=== PATIENT | female | born 1985 | race Caucasian/White ===

== ENCOUNTER → 2016-11-24 | Outpatient (CLI) | payer OTHER ==
--- NOTE | 2016-11-25 08:14 | USB ---
Reason for exam: clinical finding. Indicated problem(s): palpable abnormality in the right breast. Physical Findings: Nurse Summary: 2.5cm movable lesion at 11 o'clock (nurse dw). US Breast RT Right breast ultrasound including all four quadrants, the retroareolar region and axilla demonstrates a 1.7 x 1.6 x 1.8cm solid, hypoechoic lesion at palpable at 11 o'clock, probable fibroadenoma. 6 month follow up recommended. These results were verbally communicated with the patient and result sheet given to the patient on 11/24/16. ASSESSMENT: Probably benign, BI-RAD 3 RECOMMENDATION: Ultrasound of the right breast in 6 months. Manage patient on a clinical basis.
== END | disposition home or self-care (01) ==
LOC: RADUSWWP 14:53
PROVIDERS: ATTEND Obstetrics & Gynecology
DX: N63 Unspecified lump in breast (principal)

== ENCOUNTER 2018-08-02 08:17 | Emergency (ER) | payer OTHER, BC ==
[2018-08-02] MEDS ORDERED: SODIUM CHLORIDE 0.9% 1,000 ML IV STA (09:03)
--- NOTE | 2018-08-02 09:04 | ED ---
General Adult HPI - General Chief complaint: Vaginal Bleeding Stated complaint: 10wks preg, bleeding Time Seen by Provider: 08/02/18 08:51 Source: patient, RN notes reviewed Mode of arrival: ambulatory Limitations: no limitations - History of Present Illness Initial comments: Patient 33-year-old female presented to the emergency room today with a chief complaint of vaginal bleeding that started this morning which woke up. Patient does admit that she's approximate 10 weeks . She states that she went to the bathroom and she wiped she saw small amount blood. She states she's not using a pad at this time. Denies any increased abdominal pain or cramping. Patient does not that she's had nausea throughout the . She has been using Zofran at home. Patient denies any other complaints. 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 Patient denies any recent fever, chills, shortness of breath, chest pain, back pain, vomiting, numbness or tingling, dysuria or hematuria, constipation or diarrhea, headaches or visual changes, or any other complaints. - Related Data Home Medications Medication Instructions Recorded Confirmed [id number] Acid 1 each PO DAILY 03/20/14 08/02/18 [-U Capsule] Ondansetron [Zofran ODT] 4 mg PO Q6H PRN 08/02/18 08/02/18 Allergies Allergy/AdvReac Type Severity Reaction Status Date / Time avocado Allergy Unknown Verified 08/02/18 08:53 banana Allergy Unknown Verified 08/02/18 08:53 kiwi Allergy Unknown Verified 08/02/18 08:53 latex Allergy Rash/Hives Verified 08/02/18 08:53 CHESTNUTS Allergy Unknown Uncoded 08/02/18 08:53 Review of Systems ROS Statement: Those systems with pertinent positive or pertinent negative responses have been documented in the HPI. ROS Other: All systems not noted in ROS Statement are negative. Past Medical History Past Medical History: No Reported History History of Any Multi-Drug Resistant Organisms: None Reported Past Surgical History: Cholecystectomy Additional Past Surgical History / Comment(s): D & C 2011 with hemorrhage complications Past Anesthesia/Blood Transfusion Reactions: No Reported Reaction Past Psychological History: No Psychological Hx Reported Smoking Status: Former smoker Past Alcohol Use History: None Reported Past Drug Use History: None Reported General Exam - General Exam Comments Initial Comments: General: The patient is awake and alert, in no distress, and does not appear acutely ill. Eye: Extra-ocular movements are intact. No nystagmus. There is normal conjunctiva bilaterally. No signs of icterus. Ears, nose, mouth and throat: There are moist mucous membranes and no oral lesions. Neck: The neck is supple, there is no tenderness or JVD. Cardiovascular: There is a regular rate and rhythm. No murmur, rub or gallop is appreciated. Respiratory: Lungs are clear to auscultation, respirations are non-labored, breath sounds are equal. No wheezes, stridor, rales, or rhonchi. Gastrointestinal: Soft, non-distended, non-tender abdomen without masses or organomegaly noted. There is no rebound or guarding present. No CVA tenderness. Musculoskeletal: Normal ROM, no tenderness. Sensation intact. Neurological: A&O x 3. CN II-XII intact, There are no obvious motor or sensory deficits. Coordination appears grossly intact. Speech is normal. Skin: Skin is warm and dry and no rashes or lesions are noted. Psychiatric: Cooperative, appropriate mood & affect, normal judgment. Limitations: no limitations Course Vital Signs 08/02/18 08/02/18 08:19 11:38 Temperature 98.2 F 98.8 F Pulse Rate 83 99 Respiratory 20 18 Rate Blood Pressure 117/74 122/70 O2 Sat by Pulse 99 98 Oximetry Medical Decision Making - Medical Decision Making Reexamined at this times her no signs of distress. She is resting comfortable. She denies any increased bleeding or increased abdominal pain at this time. Patient's labs been reviewed. Rh is positive. Patient's ultrasound does show a single IUP measuring 7 weeks 6 days. No heart tones at this time. Findings are consistent with demise. Patient's been updated. Advised close follow-up with the [facility] over the next 2 days. Advised to return if symptoms increase or worsen or for any other concerns. She'll be given a prescription for repeat beta hCG in 2 days. - Lab Data Result diagrams: 08/02/18 08:44 08/02/18 08:44 Lab Results 08/02/18 08/02/18 08/02/18 Range/Units 08:40 08:44 08:44 WBC 6.0 (3.8-10.6) k/uL RBC 4.04 (3.80-5.40) m/uL Hgb 12.1 (11.4-16.0) gm/dL Hct 35.1 (34.0-46.0) % MCV 86.8 (80.0-100.0) fL MCH 29.8 (25.0-35.0) pg MCHC 34.4 (31.0-37.0) g/dL RDW 12.0 (11.5-15.5) % Plt Count 267 (150-450) k/uL Neutrophils % 63 % Lymphocytes % 29 % Monocytes % 5 % Eosinophils % 2 % Basophils % 0 % Neutrophils # 3.8 (1.3-7.7) k/uL Lymphocytes # 1.7 (1.0-4.8) k/uL Monocytes # 0.3 (0-1.0) k/uL Eosinophils # 0.1 (0-0.7) k/uL Basophils # 0.0 (0-0.2) k/uL Sodium 137 (137-145) mmol/L Potassium 4.1 (3.5-5.1) mmol/L Chloride 106 (98-107) mmol/L Carbon Dioxide 23 (22-30) mmol/L Anion Gap 8 mmol/L BUN 9 (7-17) mg/dL Creatinine 0.56 (0.52-1.04) mg/dL Est GFR (CKD-EPI)AfAm >90 (>60 ml/min/1.73 sqM) Est GFR (CKD-EPI)NonAf >90 (>60 ml/min/1.73 sqM) Glucose 96 (74-99) mg/dL Calcium 9.1 (8.4-10.2) mg/dL Total Bilirubin 0.3 (0.2-1.3) mg/dL AST 14 (14-36) U/L ALT 15 (9-52) U/L Alkaline Phosphatase 35 L (38-126) U/L Total Protein 6.6 (6.3-8.2) g/dL Albumin 3.7 (3.5-5.0) g/dL HCG, Quant 546577.0 mIU/mL Urine Color Urine Appearance (Clear) Urine pH (5.0-8.0) Ur Specific [place] (1.001-1.035) Urine Protein (Negative) Urine Glucose (UA) (Negative) Urine Ketones (Negative) Urine Blood (Negative) Urine Nitrite (Negative) Urine Bilirubin (Negative) Urine Urobilinogen (<2.0) mg/dL Ur Leukocyte Esterase (Negative) Urine RBC (0-5) /hpf Urine WBC (0-5) /hpf Ur Squamous Epith Cells (0-4) /hpf Urine Bacteria (None) /hpf Urine Mucus (None) /hpf Blood Type A Positive Blood Type Recheck No 08/02/18 Range/Units 08:44 WBC (3.8-10.6) k/uL RBC (3.80-5.40) m/uL Hgb (11.4-16.0) gm/dL Hct (34.0-46.0) % MCV (80.0-100.0) fL MCH (25.0-35.0) pg MCHC (31.0-37.0) g/dL RDW (11.5-15.5) % Plt Count (150-450) k/uL Neutrophils % % Lymphocytes % % Monocytes % % Eosinophils % % Basophils % % Neutrophils # (1.3-7.7) k/uL Lymphocytes # (1.0-4.8) k/uL Monocytes # (0-1.0) k/uL Eosinophils # (0-0.7) k/uL Basophils # (0-0.2) k/uL Sodium (137-145) mmol/L Potassium (3.5-5.1) mmol/L Chloride (98-107) mmol/L Carbon Dioxide (22-30) mmol/L Anion Gap mmol/L BUN (7-17) mg/dL Creatinine (0.52-1.04) mg/dL Est GFR (CKD-EPI)AfAm (>60 ml/min/1.73 sqM) Est GFR (CKD-EPI)NonAf (>60 ml/min/1.73 sqM) Glucose (74-99) mg/dL Calcium (8.4-10.2) mg/dL Total Bilirubin (0.2-1.3) mg/dL AST (14-36) U/L ALT (9-52) U/L Alkaline Phosphatase (38-126) U/L Total Protein (6.3-8.2) g/dL Albumin (3.5-5.0) g/dL HCG, Quant mIU/mL Urine Color Yellow Urine Appearance Cloudy H (Clear) Urine pH 6.0 (5.0-8.0) Ur Specific [place] 1.028 (1.001-1.035) Urine Protein 1+ H (Negative) Urine Glucose (UA) Negative (Negative) Urine Ketones Negative (Negative) Urine Blood Negative (Negative) Urine Nitrite Negative (Negative) Urine Bilirubin Negative (Negative) Urine Urobilinogen <2.0 (<2.0) mg/dL Ur Leukocyte Esterase Negative (Negative) Urine RBC 8 H (0-5) /hpf Urine WBC 1 (0-5) /hpf Ur Squamous Epith Cells 14 H (0-4) /hpf Urine Bacteria Rare H (None) /hpf Urine Mucus Many H (None) /hpf Blood Type Blood Type Recheck Disposition Clinical Impression: Incomplete miscarriage Disposition: HOME SELF-CARE Condition: Good Instructions: Miscarriage (ED) Additional Instructions: Please follow-up with [facility] in the next 2 days. Please return to emergency room if the symptoms increase or worsen or for any other concerns. Is patient prescribed a controlled substance at d/c from ED?: No Referrals: Brittany Cota MD [Primary Care Provider] - 1-2 days Time of Disposition: 11:43
[2018-08-02 09:13] LABS: Basophils % (A) 0 %; Eosinophils # (A) 0.1 k/uL (0-0.7); Eosinophils % (A) 2 %; HCT 35.1 % (34.0-46.0); HGB 12.1 gm/dL (11.4-16.0); Lymphocytes # (A) 1.7 k/uL (1.0-4.8); Lymphocytes % (A) 29 %; MCH 29.8 pg (25.0-35.0); MCHC 34.4 g/dL (31.0-37.0); MCV 86.8 fL (80.0-100.0); Mean Platelet Volume 7.2; Monocytes # (A) 0.3 k/uL (0-1.0); Monocytes % (A) 5 %; Neutrophils # (A) 3.8 k/uL (1.3-7.7); Neutrophils % (A) 63 %; Platelet Count 267 k/uL (150-450); RBC 4.04 m/uL (3.80-5.40)
[2018-08-02 09:20] LABS: Appearance,Urine Cloudy (Clear); Bacteria,Urine Rare /hpf; Bilirubin,Urine Negative (Negative); Blood,Urine Negative (Negative); Color,Urine Yellow; Glucose,Urine (UA) Negative (Negative); Ketones,Urine Negative (Negative); Leukocyte Esterase,Urine Negative (Negative); Mucus,Urine Many /hpf; Nitrite,Urine Negative (Negative); Protein,Urine 1+ (Negative); RBC,Urine 8 /hpf (0-5); Specific Gravity,Urine 1.028 (1.001-1.035); Squamous Epithelial Cell,Urine 14 /hpf (0-4); Urobilinogen,Urine <2.0 mg/dL (<2.0)
[2018-08-02 09:21] LABS: ALT 15 U/L (9-52); AST 14 U/L (14-36); Albumin 3.7 g/dL (3.5-5.0); Alkaline Phosphatase 35 U/L (38-126); Anion Gap 8 mmol/L; Blood Urea Nitrogen 9 mg/dL (7-17); Calcium 9.1 mg/dL (8.4-10.2); Carbon Dioxide 23 mmol/L (22-30); Chloride 106 mmol/L (98-107); Glucose 96 mg/dL (74-99); Potassium 4.1 mmol/L (3.5-5.1); Sodium 137 mmol/L (137-145); Total Bilirubin 0.3 mg/dL (0.2-1.3); Total Protein 6.6 g/dL (6.3-8.2)
--- NOTE | 2018-08-02 11:31 | US ---
EXAMINATION TYPE: Ultrasound OB <= 14 week fetus DATE OF EXAM: 08/02/2018 COMPARISON: NONE CLINICAL HISTORY: 33-year-old female Pain. Bleeding x 1 day, 5, para 2, miscarriage 2 EXAM PERFORMED: Transabdominal (TA) FINDINGS: EXAM MEASUREMENTS: GESTATIONAL AGE / DATING Physician Established: (10 weeks/0 days) EDC: 02/28/2019 Dates by LMP: (10 weeks/0 days) EDC: 02/28/2019 Dates by First Scan: This is 1st scan Dates by Current Scan for: (7 weeks/6 days) EDC: 03/15/2019 MATERNAL ANATOMY Uterus: 10.3 x 8.0 x 9.0cm, anteverted Right Ovary: 3.3 x 2.0 x 2.4cm Left Ovary: 2.8 x 1.4 x 2.0cm Post CDS / Adnexa: wnl Presence of free fluid: no Presence of corpus luteal cyst: right ovary: 2.6cm hypoechoic area with peripheral vascularity, proba ble corpus luteum Presence of subchorionic bleed: no GESTATION / SURVEY CRL: 1.5cm (7 weeks/6 days) Yolk Sac (normal less than 6mm): 4.5mm IUP: Demise Date of LMP: 05/24/2018 Beta HcG (if available): Not available at time of exam. demise: no heart tones seen at this time IMPRESSION: Intrauterine measuring 7 weeks 6 days by crown-rump length, discordant and smaller as arya red to gestational age by LMP. In addition, there is no cardiac activity detected by M-mode or color doppler. Findings suggest demise. This can be correlated with down trending beta hCGs.
[2018-08-02 11:38] VITALS: BP 122/70; PULSE 99; RESP 18; TEMP 98.8
== END 2018-08-02 12:05 | disposition home or self-care (01) ==
LOC: EC 08:17
DX: O03.4 Incomplete spontaneous abortion without complication (principal); Z3A.01 Less than 8 weeks gestation of pregnancy; Z87.891 Personal history of nicotine dependence; Z91.018 Allergy to other foods; Z91.040 Latex allergy status
CPT/HCPCS: 36415; 76801; 80053; 81001; 84702; 85025; 86900; 86901; 99284

== ENCOUNTER 2018-08-05 10:47 | Day surgery (SDC) | payer BC, OTHER ==
[2018-08-04 10:46] VITALS: BMI 30.4
[~2018-08-05 10:47] MED LIST: DEXAMETHASONE SOD PHOSPHATE 10 MG/ML 1 ML VIAL IV ONE; LACTATED RINGERS 1,000 ML IV SCH; LIDOCAINE 1% 20 ML VIAL (10MG/ML) FOR IV START INTRADERMA PRN; MIDAZOLAM 2 MG/2 ML VIAL IV PRN; ONDANSETRON 4 MG/2 ML VIAL IVP ONE; Pre Op ABX Message 1 EACH MISC MISCELLANE ONE; fentaNYL (PF) 50 MCG/ML 2 ML AMP IV PRN
[2018-08-05 11:22] VITALS: RESP 16
--- NOTE | 2018-08-05 12:03 | P.HPOB ---
History of Present Illness H&P Date: 08/05/18 Chief Complaint: missed ab Dayana 33-year-old female with 2 prior miscarriages who presents my office yesterday for an incomplete AB at approximately 7 weeks. [place] last time she had a incomplete AB she ended up having hemorrhage and required an emergent suction D&C and she would prefer to not have an emergency happens aware scheduled for a suction D&C today. Risks/benefits/alternatives to this procedure were discussed with the patient in detail and all questions were answered for her prior to proceeding to the operating room. She is aware of potential risks for bleeding and infection as well as perforation requiring further surgery. She is a 5 para 2 with the 2 prior spontaneous AB. Past Medical History Past Medical History: GI Bleed Additional Past Medical History / Comment(s): HX VOMITING BLOOD IN PAST . MISSED AB CURRENTLY. [place] R/T . History of Any Multi-Drug Resistant Organisms: None Reported Past Surgical History: Breast Surgery, Cholecystectomy Additional Past Surgical History / Comment(s): D & C 2012 w/ hemorrhage complications. FIBROADENOMA EXC RT BREAST. Past Anesthesia/Blood Transfusion Reactions: No Reported Reaction Smoking Status: Former smoker - Past Family History Mother Family Medical History: No Reported History Medications and Allergies Home Medications Medication Instructions Recorded Confirmed Type Ondansetron [Zofran ODT] 4 mg PO Q6H PRN 08/02/18 08/05/18 History Allergies Allergy/AdvReac Type Severity Reaction Status Date / Time avocado Allergy Swelling Verified 08/04/18 10:25 banana Allergy Swelling Verified 08/04/18 10:25 kiwi Allergy Swelling Verified 08/04/18 10:25 latex Allergy Rash/Hives Verified 08/04/18 10:25 Latex, Natural Rubber Allergy Rash/Hives Verified 08/04/18 10:58 CHESTNUTS Allergy Unknown Uncoded 08/04/18 10:25 Exam Osteopathic Statement: *. No significant issues noted on an osteopathic structural exam other than those noted in the History and Physical/Consult. Vital Signs Temp Pulse Resp BP Pulse Ox 08/05/18 11:18 98.3 F 96 16 128/71 99 - OBG Physical Exam Breast: both: normal (no masses) Abdomen: bowel sounds normal, no diffuse tenderness, no bruit present, no guarding noted, no hepatomegaly, no splenomegaly, no mass Vulva: both: normal Vagina: normal moisture, no discharge Cervix: no lesion, no discharge Uterus: normal size, normal contour Adnexa: both: normal Anus/Rectum: normal perianal skin, no rectal mass, no hemorrhoids, heme negative
[2018-08-05] MEDS ORDERED: OXYTOCIN 10 UNIT/ML 1 ML VIAL ONE (12:13)
[2018-08-05] MEDS ORDERED: MIDAZOLAM 2 MG/2 ML VIAL ONE (12:13)
[2018-08-05] MEDS ORDERED: SUCCINYLCHOLINE CHLORIDE 100 MG/5 ML SYR IV ONE (12:13)
[2018-08-05] MEDS ORDERED: PROPOFOL 10 MG/ML 20 ML VIAL IV ONE (12:13)
[2018-08-05] MEDS ORDERED: LIDOCAINE 1% INJ 10MG/ML (20 ML MDV) ONE (12:13)
[2018-08-05] MEDS ORDERED: fentaNYL (PF) 50 MCG/ML 2 ML AMP ONE (12:13)
[2018-08-05] MEDS ORDERED: LACTATED RINGERS 1,000 ML IV ONE (12:36)
--- NOTE | 2018-08-05 12:38 | P.OP ---
Date of Procedure: 08/05/18 Preoperative Diagnosis: Missed AB Postoperative Diagnosis: Same Procedure(s) Performed: Suction D&C Anesthesia: ASHLYNA Surgeon: Jason Salazar Estimated Blood Loss (ml): 100 Pathology: other (Products of conception) Condition: stable Disposition: same day Operative Findings: Tissue pending Description of Procedure: Patient was taken to the operating suite where a general anesthetic was found be adequate. She was prepped and draped in the normal sterile fashion and placed in the dorsal lithotomy position. Initially a weighted speculum was inserted into the vagina and the anterior lip of cervix was identified and grasped with single-tooth tenaculum. Cervix was then dilated and using a 9 curved tip suction catheter was inserted and suction was applied. Rotating it clockwise fashion proximal conception were obtained. This was done 3 separate times. Once this was accomplished gentle sharp curettings were done to verify no further products were left behind, 2 more passes with the suction tip curette were then done and instruments were removed. No significant bleeding is noted this time. Sponge, lap, needle counts were all correct 2. Patient will be taken to the recovery room in stable and satisfactory condition. Tissue will be sent for genetics. Plan - Discharge Summary New Discharge Prescriptions: New Ibuprofen [Motrin] 600 mg PO Q6HR PRN #30 tab PRN Reason: Pain No Action Ondansetron [Zofran ODT] 4 mg PO Q6H PRN PRN Reason: Nausea Discharge Medication List Ondansetron [Zofran ODT] 4 mg PO Q6H PRN 08/02/18 [History] Ibuprofen [Motrin] 600 mg PO Q6HR PRN #30 tab 08/05/18 [Rx] Follow up Appointment(s)/Referral(s): Jason Salazar DO [Doctor of Osteopathic Medicine] - 1 Week Activity/Diet/Wound Care/Special Instructions: No heavy lifting, limit stairs and driving, and pelvic rest. If any high temperatures, heavy bleeding, or severe pain call my office Discharge Disposition: HOME SELF-CARE
[2018-08-05 13:12] VITALS: TEMP 97
[2018-08-05 14:11] VITALS: BP 113/75; PULSE 87
== END 2018-08-05 14:28 | disposition home or self-care (01) ==
LOC: OR 10:47
PROVIDERS: ATTEND Obstetrics & Gynecology
DX: O02.1 Missed abortion (principal); Z87.891 Personal history of nicotine dependence; Z91.040 Latex allergy status
CPT/HCPCS: 86900; 86901; 88305; 86850; 59820; J2250; J1100; J2590; J2405; J2001; J3010; J0330; J2704

== ENCOUNTER → 2018-12-01 | Outpatient (CLI) | payer BC, OTHER ==
[2018-12-01 16:10] LABS: HCT 41.9 % (34.0-46.0); MCH 29.4 pg (25.0-35.0); MCHC 33.3 g/dL (31.0-37.0); MCV 88.2 fL (80.0-100.0); Mean Platelet Volume 7.3; Platelet Count 336 k/uL (150-450); RBC 4.75 m/uL (3.80-5.40); RDW 12.6 % (11.5-15.5); WBC 8.4 k/uL (3.8-10.6)
[2018-12-02 05:12] LABS: HIV 1 AB Non-Reactive (Non-Reactive); HIV AB P24 Non-Reactive (Non-Reactive); HIV P24 AG Non-Reactive (Non-Reactive)
[2018-12-02 06:04] LABS: Toxoplasma Antibody (IgG) 57.4 IU/mL (<7.2); Toxoplasma Antibody (IgM) <3.0 AU/mL (<8.0)
== END | disposition home or self-care (01) ==
LOC: LABWHC1 15:12
PROVIDERS: ATTEND Obstetrics & Gynecology
DX: O26.819 Pregnancy related exhaustion and fatigue, unspecified trimester (principal); Z3A.00 Weeks of gestation of pregnancy not specified
CPT/HCPCS: 36415; 82565; 82947; 84702; 85027; 86762; 86777; 86778; 86780; 86850; 86900; 86901; 87340; 87390

== ENCOUNTER → 2018-12-03 | Outpatient (CLI) | payer OTHER | LOC: LABWHC1 14:41 | PROVIDERS: ATTEND Obstetrics & Gynecology | DX: O99.89 Other specified diseases and conditions complicating pregnancy, childbirth and the puerperium (principal); R53.83 Other fatigue | CPT/HCPCS: 36415; 84702 ==

== ENCOUNTER → 2018-12-28 | Outpatient (CLI) | payer OTHER ==
--- NOTE | 2018-12-28 15:57 | US ---
EXAMINATION TYPE: Ultrasound OB <= 14 weeks DATE OF EXAM: 12/28/2018 COMPARISON: None CLINICAL HISTORY: 33-year-old female Z36 Confirm Dates Viability. Confirm dates and viability EXAM PERFORMED: Transabdominal (TA) FINDINGS: EXAM MEASUREMENTS: GESTATIONAL AGE / DATING Physician Established: (7 weeks/4 days) EDC: 08/12/2019 Dates by LMP: (7 weeks/4 days) EDC: 08/12/2019 Dates by First Scan: No prior Dates by Current Scan for: (7 weeks/5 days) EDC: 08/11/2019 MATERNAL ANATOMY Uterus: 9.4 x 6.1 x 7.9 cm/rounded isoechoic area along the right lateral myometrium= 3.4 x 2.9 x 3.3 cm. Right Ovary: 3.0 x 1.9 x 3.2 cm Left Ovary: 2.5 x 1.4 x 1.8 cm Post CDS / Adnexa: wnl Presence of free fluid: No Presence of corpus luteal cyst: Right Ovary= 1.8 x 1.6 x 1.9 cm Presence of subchorionic bleed: No GESTATION / SURVEY CRL: 1.4 cm (7 weeks/5 days) MSD: wnl Yolk Sac (normal less than 6mm): 2.8 mm Heart Rate: 160 bpm Rhythm: Normal IUP: Viable IUP Date of LMP: 11/05/[address] Salaazr at time of exam IMPRESSION: 1. Single live intrauterine with estimated gestational age of 7 weeks 4 days by LMP. 2. Ultrasound biometry is concordant (7 weeks 5 days). 3. Round isoechoic structure along the right lateral myometrium measures 3.4 cm suggestive of a focal fibroid. 4. Complete survey recommended at 18-20 weeks. MTDD
== END | disposition home or self-care (01) ==
LOC: RADUSWWP 15:17
PROVIDERS: ATTEND Obstetrics & Gynecology
DX: Z36.89 Encounter for other specified antenatal screening (principal); Z3A.20 20 weeks gestation of pregnancy; Z87.59 Personal history of other complications of pregnancy, childbirth and the puerperium
CPT/HCPCS: 76801; 76817

== ENCOUNTER 2019-01-15 19:56 | Emergency (ER) | payer OTHER ==
[2019-01-15] MEDS ORDERED: SODIUM CHLORIDE 0.9% 500 ML 500 ML IV ONE (20:28)
--- NOTE | 2019-01-15 21:00 | ED ---
General Adult HPI - General Chief complaint: Vaginal Bleeding Stated complaint: Bleeding - 10wks preg Time Seen by Provider: 01/15/19 20:25 Source: patient, family, RN notes reviewed Mode of arrival: ambulatory Limitations: no limitations - History of Present Illness Initial comments: 33-year-old female presents to the emergency department for a chief complaint of vaginal bleeding. Patient is currently 10 weeks . Patient states she has had 3 miscarriages in the past. She states that she started to have vaginal bleeding a few hours ago. She states it is likely in nature. She denies any abdominal pain or cramping. Patient is concerned she is having a miscarriage. Patient does not want an IV nor a pelvic exam. Patient follows a Dr. Salazar. Patient has no other complaints at this time including shortness of breath, chest pain, abdominal pain, nausea or vomiting, headache, or visual changes. - Related Data Home Medications Medication Instructions Recorded Confirmed Ondansetron [Zofran ODT] 4 mg PO Q6H PRN 08/02/18 08/05/18 Previous Rx's Medication Instructions Recorded Ibuprofen [Motrin] 600 mg PO Q6HR PRN #30 tab 08/05/18 Allergies Allergy/AdvReac Type Severity Reaction Status Date / Time avocado Allergy Swelling Verified 01/15/19 20:16 banana Allergy Swelling Verified 01/15/19 20:16 kiwi Allergy Swelling Verified 01/15/19 20:16 latex Allergy Rash/Hives Verified 01/15/19 20:16 Latex, Natural Rubber Allergy Rash/Hives Verified 01/15/19 20:16 CHESTNUTS Allergy Unknown Uncoded 01/15/19 20:16 Review of Systems ROS Statement: Those systems with pertinent positive or pertinent negative responses have been documented in the HPI. ROS Other: All systems not noted in ROS Statement are negative. Past Medical History Past Medical History: GI Bleed Additional Past Medical History / Comment(s): HX VOMITING BLOOD IN PAST . MISSED AB CURRENTLY. [place] R/T . History of Any Multi-Drug Resistant Organisms: None Reported Past Surgical History: Breast Surgery, Cholecystectomy Additional Past Surgical History / Comment(s): D & C 2011 w/ hemorrhage complications. FIBROADENOMA EXC RT BREAST. Past Anesthesia/Blood Transfusion Reactions: No Reported Reaction Past Psychological History: No Psychological Hx Reported Smoking Status: Former smoker Past Alcohol Use History: None Reported Past Drug Use History: None Reported - Past Family History Mother Family Medical History: No Reported History General Exam Limitations: no limitations General appearance: alert, in no apparent distress Head exam: Present: atraumatic, normocephalic, normal inspection Eye exam: Present: normal appearance, PERRL, EOMI. Absent: scleral icterus, conjunctival injection, periorbital swelling ENT exam: Present: normal exam, mucous membranes moist Neck exam: Present: normal inspection, full ROM. Absent: tenderness, meningismus, lymphadenopathy Respiratory exam: Present: normal lung sounds bilaterally. Absent: respiratory distress, wheezes, rales, rhonchi, stridor Cardiovascular Exam: Present: regular rate, normal rhythm, normal heart sounds. Absent: systolic murmur, diastolic murmur, rubs, gallop, clicks GI/Abdominal exam: Present: soft, normal bowel sounds. Absent: distended, tenderness, guarding, rebound, rigid External exam: Present: other (REFUSED, WITNESSED BY RUBÉN NICE) Neurological exam: Present: alert Psychiatric exam: Present: normal affect, normal mood Course Vital Signs 01/15/19 20:12 Temperature 98.3 F Pulse Rate 86 Respiratory 18 Rate Blood Pressure 125/76 O2 Sat by Pulse 100 Oximetry Medical Decision Making - Medical Decision Making 33-year-old female presents to the emergency department for chief of any vaginal bleeding. Patient refuses pelvic exam stating he generally just causes her pain and she just wants the ultrasound. Patient states vaginal bleeding is light and just started earlier today. CBC and CMP are unremarkable. Urinalysis is negative. HCG Quant is pending. ultrasound shows no Acute process seen. There is a single living intrauterine fetus with satisfactory growth. At this time patient is likely expressing a threatened miscarriage. She will follow up with [facility]. Patient is an established patient. She will be given a prescription for repeat hCG. She will return here if she has any worsening symptoms. - Lab Data Result diagrams: 01/15/19 21:06 01/15/19 21:06 Lab Results 01/15/19 01/15/19 01/15/19 Range/Units 20:55 20:55 21:06 WBC 7.5 (3.8-10.6) k/uL RBC 3.98 (3.80-5.40) m/uL Hgb 11.3 L (11.4-16.0) gm/dL Hct 34.1 (34.0-46.0) % MCV 85.5 (80.0-100.0) fL MCH 28.5 (25.0-35.0) pg MCHC 33.3 (31.0-37.0) g/dL RDW 12.8 (11.5-15.5) % Plt Count 282 (150-450) k/uL Neutrophils % 60 % Lymphocytes % 32 % Monocytes % 5 % Eosinophils % 1 % Basophils % 0 % Neutrophils # 4.5 (1.3-7.7) k/uL Lymphocytes # 2.4 (1.0-4.8) k/uL Monocytes # 0.4 (0-1.0) k/uL Eosinophils # 0.1 (0-0.7) k/uL Basophils # 0.0 (0-0.2) k/uL Sodium (137-145) mmol/L Potassium (3.5-5.1) mmol/L Chloride (98-107) mmol/L Carbon Dioxide (22-30) mmol/L Anion Gap mmol/L BUN (7-17) mg/dL Creatinine (0.52-1.04) mg/dL Est GFR (CKD-EPI)AfAm (>60 ml/min/1.73 sqM) Est GFR (CKD-EPI)NonAf (>60 ml/min/1.73 sqM) Glucose (74-99) mg/dL Calcium (8.4-10.2) mg/dL Total Bilirubin (0.2-1.3) mg/dL AST (14-36) U/L ALT (9-52) U/L Alkaline Phosphatase (38-126) U/L Total Protein (6.3-8.2) g/dL Albumin (3.5-5.0) g/dL Urine Color Colorless Urine Appearance Clear (Clear) Urine pH 7.0 (5.0-8.0) Ur Specific [place] 1.004 (1.001-1.035) Urine Protein Negative (Negative) Urine Glucose (UA) Negative (Negative) Urine Ketones Negative (Negative) Urine Blood Negative (Negative) Urine Nitrite Negative (Negative) Urine Bilirubin Negative (Negative) Urine Urobilinogen <2.0 (<2.0) mg/dL Ur Leukocyte Esterase Negative (Negative) Urine HCG, Qual Detected (Not Detectd) 01/15/19 Range/Units 21:06 WBC (3.8-10.6) k/uL RBC (3.80-5.40) m/uL Hgb (11.4-16.0) gm/dL Hct (34.0-46.0) % MCV (80.0-100.0) fL MCH (25.0-35.0) pg MCHC (31.0-37.0) g/dL RDW (11.5-15.5) % Plt Count (150-450) k/uL Neutrophils % % Lymphocytes % % Monocytes % % Eosinophils % % Basophils % % Neutrophils # (1.3-7.7) k/uL Lymphocytes # (1.0-4.8) k/uL Monocytes # (0-1.0) k/uL Eosinophils # (0-0.7) k/uL Basophils # (0-0.2) k/uL Sodium 136 L (137-145) mmol/L Potassium 4.1 (3.5-5.1) mmol/L Chloride 105 (98-107) mmol/L Carbon Dioxide 23 (22-30) mmol/L Anion Gap 8 mmol/L BUN 6 L (7-17) mg/dL Creatinine 0.53 (0.52-1.04) mg/dL Est GFR (CKD-EPI)AfAm >90 (>60 ml/min/1.73 sqM) Est GFR (CKD-EPI)NonAf >90 (>60 ml/min/1.73 sqM) Glucose 95 (74-99) mg/dL Calcium 9.6 (8.4-10.2) mg/dL Total Bilirubin 0.3 (0.2-1.3) mg/dL AST 16 (14-36) U/L ALT 30 (9-52) U/L Alkaline Phosphatase 49 (38-126) U/L Total Protein 7.1 (6.3-8.2) g/dL Albumin 3.9 (3.5-5.0) g/dL Urine Color Urine Appearance (Clear) Urine pH (5.0-8.0) Ur Specific [place] (1.001-1.035) Urine Protein (Negative) Urine Glucose (UA) (Negative) Urine Ketones (Negative) Urine Blood (Negative) Urine Nitrite (Negative) Urine Bilirubin (Negative) Urine Urobilinogen (<2.0) mg/dL Ur Leukocyte Esterase (Negative) Urine HCG, Qual (Not Detectd) Disposition Clinical Impression: Threatened miscarriage Disposition: HOME SELF-CARE Condition: Good Instructions (If sedation given, give patient instructions): Threatened Miscarriage (ED) Additional Instructions: Please repeat blood work in 2 days. Please follow-up with [facility] in one to 2 days. Please return to the emergency department if you have any worsening symptoms. Is patient prescribed a controlled substance at d/c from ED?: No Referrals: Brittany Cota MD [Primary Care Provider] - 1-2 days Time of Disposition: 22:40
[2019-01-15 21:02] LABS: Appearance,Urine Clear (Clear); Bilirubin,Urine Negative (Negative); Blood,Urine Negative (Negative); Color,Urine Colorless; Glucose,Urine (UA) Negative (Negative); Ketones,Urine Negative (Negative); Leukocyte Esterase,Urine Negative (Negative); Nitrite,Urine Negative (Negative); Protein,Urine Negative (Negative); Specific Gravity,Urine 1.004 (1.001-1.035); Urobilinogen,Urine <2.0 mg/dL (<2.0)
[2019-01-15 21:23] LABS: Basophils % (A) 0 %; Eosinophils # (A) 0.1 k/uL (0-0.7); Eosinophils % (A) 1 %; HCT 34.1 % (34.0-46.0); HGB 11.3 gm/dL (11.4-16.0); Lymphocytes # (A) 2.4 k/uL (1.0-4.8); Lymphocytes % (A) 32 %; MCH 28.5 pg (25.0-35.0); MCHC 33.3 g/dL (31.0-37.0); MCV 85.5 fL (80.0-100.0); Mean Platelet Volume 7.3; Monocytes # (A) 0.4 k/uL (0-1.0); Monocytes % (A) 5 %; Neutrophils # (A) 4.5 k/uL (1.3-7.7); Neutrophils % (A) 60 %; Platelet Count 282 k/uL (150-450); RBC 3.98 m/uL (3.80-5.40); RDW 12.8 % (11.5-15.5); WBC 7.5 k/uL (3.8-10.6)
[2019-01-15 21:48] LABS: ALT 30 U/L (9-52); AST 16 U/L (14-36); Albumin 3.9 g/dL (3.5-5.0); Alkaline Phosphatase 49 U/L (38-126); Anion Gap 8 mmol/L; Blood Urea Nitrogen 6 mg/dL (7-17); Calcium 9.6 mg/dL (8.4-10.2); Carbon Dioxide 23 mmol/L (22-30); Chloride 105 mmol/L (98-107); Glucose 95 mg/dL (74-99); Potassium 4.1 mmol/L (3.5-5.1); Sodium 136 mmol/L (137-145); Total Bilirubin 0.3 mg/dL (0.2-1.3); Total Protein 7.1 g/dL (6.3-8.2)
--- NOTE | 2019-01-15 21:55 | US ---
EXAMINATION TYPE: Transabdominal DATE OF EXAM: 01/15/2019 9:40 PM COMPARISON: 12/28/2018 CLINICAL HISTORY: Pain. bleeding with EXAM PERFORMED: Transabdominal (TA) EXAM MEASUREMENTS: GESTATIONAL AGE / DATING Physician Established: (10 weeks/1 days) EDC: 08/12/2019 Dates by LMP: (10 weeks/1 days) EDC: 08/12/2019 Dates by First Scan: (10 weeks/2 days) EDC: 08/11/2019 Dates by Current Scan for: (10 weeks/3 days) EDC: 08/10/2019 MATERNAL ANATOMY Uterus: 13.1 x 6.5 x 8.5 cm Right Ovary: 2.4 x 1.6 x 3.0 cm Left Ovary: 2.5 x 1.2 x 2.3 cm Post CDS / Adnexa: wnl Presence of free fluid: none GESTATION / SURVEY CRL: 3.6 cm (10 weeks/3 days) Yolk Sac (normal less than 6mm): not identified Heart Rate: 163 bpm Rhythm: Normal IUP: Viable IUP Date of LMP: 11/05/2018 Beta HcG (if available): not available Viable IUP that correlates with LMP and prior ultrasound. IMPRESSION: No complicating process seen. Single living intrauterine fetus. there is satisfactory growth compared to old exam.
[2019-01-15 22:46] VITALS: BP 118/79; PULSE 82; RESP 16; TEMP 97.9
[2019-01-15 22:46] LABS: HCG,Quantitative Serum 75573.9 mIU/mL
== END 2019-01-15 22:48 | disposition home or self-care (01) ==
LOC: EC 19:56
DX: O20.0 Threatened abortion (principal); Z87.891 Personal history of nicotine dependence; Z91.018 Allergy to other foods; Z91.040 Latex allergy status; Z90.49 Acquired absence of other specified parts of digestive tract; Z53.20 Procedure and treatment not carried out because of patient's decision for unspecified reasons; Z3A.10 10 weeks gestation of pregnancy
CPT/HCPCS: 36415; 76801; 80053; 81003; 81025; 84702; 85025; 99284

== ENCOUNTER 2019-06-17 21:24 | Emergency (ER) | payer OTHER ==
--- NOTE | 2019-06-18 00:04 | ED ---
General Adult HPI - General Chief complaint: Extremity Problem,Nontraumatic Stated complaint: left leg pain (32 weeks Preg) Time Seen by Provider: 06/17/19 22:00 Source: patient Mode of arrival: ambulatory Limitations: no limitations - History of Present Illness Initial comments: 34-year-old female patient presents to the emergency department today for e valuation of left lateral thigh pain. Patient states that the pain started yesterday has an worsening. Patient states that the area is tender to touch. She denies any known injury. States she is 32 weeks . She denies any abdominal pain, abnormal vaginal bleeding or discharge, and is feeling movement. Denies any history of blood clots. Denies any recent travel. States that she does get leg swelling towards the evenings and the left does seem to be worse on the right. She denies any calf pain or tenderness. Patient denies any recent rash, fever, chills, shortness breath, chest pain, palpitations, nausea, vomiting, diarrhea, constipation, back pain, numbness, tingling, dizziness, weakness, hematuria, dysuria, urinary urgency, urinary frequency, headache, visual changes, or any other complaints. - Related Data Home Medications Medication Instructions Recorded Confirmed Ofq-Ywle-Yhfte Acid 1 cap PO DAILY 06/17/19 06/17/19 [-U Capsule (formulary)] Allergies Allergy/AdvReac Type Severity Reaction Status Date / Time avocado Allergy Swelling Verified 06/17/19 22:05 banana Allergy Swelling Verified 06/17/19 22:05 kiwi Allergy Swelling Verified 06/17/19 22:05 latex Allergy Rash/Hives Verified 06/17/19 22:05 Latex, Natural Rubber Allergy Rash/Hives Verified 06/17/19 22:05 CHESTNUTS Allergy Unknown Uncoded 06/17/19 21:52 Review of Systems ROS Statement: Those systems with pertinent positive or pertinent negative responses have been documented in the HPI. ROS Other: All systems not noted in ROS Statement are negative. Past Medical History Past Medical History: GI Bleed Additional Past Medical History / Comment(s): HX VOMITING BLOOD IN PAST . MISSED AB CURRENTLY. NV R/T . History of Any Multi-Drug Resistant Organisms: None Reported Past Surgical History: Breast Surgery, Cholecystectomy Additional Past Surgical History / Comment(s): D & C 2012 w/ hemorrhage complications. FIBROADENOMA EXC RT BREAST. Past Anesthesia/Blood Transfusion Reactions: No Reported Reaction Past Psychological History: No Psychological Hx Reported Smoking Status: Former smoker Past Alcohol Use History: None Reported Past Drug Use History: None Reported - Past Family History Mother Family Medical History: No Reported History General Exam Limitations: no limitations General appearance: alert, in no apparent distress, other (So well-developed, well-nourished adult female patient in no acute distress. Vital signs upon presentation are temperature 98.7F, pulse 89, respirations 18, blood pressure 119/80, pulse ox 99% on room air.) Eye exam: Present: normal appearance, PERRL, EOMI. Absent: scleral icterus, conjunctival injection, periorbital swelling ENT exam: Present: normal exam, normal oropharynx, mucous membranes moist Respiratory exam: Present: normal lung sounds bilaterally. Absent: respiratory distress, wheezes, rales, rhonchi, stridor Cardiovascular Exam: Present: regular rate, normal rhythm, normal heart sounds. Absent: systolic murmur, diastolic murmur, rubs, gallop, clicks Extremities exam: Present: normal inspection, full ROM, tenderness (Left lateral thigh), normal capillary refill, other (Skin to the left leg is pink, warm, dry. Cap refills less than 3 seconds. Pedal and posttibial pulses are 2+ and equal bilaterally.). Absent: pedal edema, joint swelling, calf tenderness Neurological exam: Present: alert, oriented X3, CN II-XII intact Psychiatric exam: Present: normal affect, normal mood Skin exam: Present: warm, dry, intact, normal color. Absent: rash Course Vital Signs 06/17/19 06/18/19 21:49 00:33 Temperature 98.7 F 98.2 F Pulse Rate 89 68 Respiratory 18 19 Rate Blood Pressure 119/80 146/94 O2 Sat by Pulse 99 99 Oximetry Medical Decision Making - Medical Decision Making 34-year-old female patient presents to the emergency department today for evaluation of left thigh pain. Patient is 32 weeks and is quite concerned that she has a blood clot in her leg. States that she does have some intermittent swelling possibly a little worse on the left side. Physical examination is unremarkable. Skin is pink, warm, dry. Cap refills less than 3 seconds. No current swelling. No erythema. No calf tenderness. Heart rhythm is regular with normal rate. Lungs are clear to auscultation with good air movement. Ultrasound was obtained and showed no evidence for DVT. I did discuss findings and results with the patient. We did discuss possibility of strain as a cause for her symptoms. She is instructed to take Tylenol as needed for pain control. She is instructed to follow-up with both her primary care physician and her HAND MOLDER for recheck as soon as possible. Return parameters were discussed in detail. She verbalizes understanding and agrees with this plan. - Radiology Data Radiology results: report reviewed Venous Doppler duplex of the left lower extremity was obtained. Report was reviewed in its entirety. Impression by Dr. Andrade shows no DVT. Disposition Clinical Impression: Left thigh pain Disposition: HOME SELF-CARE Condition: Good Instructions (If sedation given, give patient instructions): Leg Pain (ED) Additional Instructions: Take Tylenol as needed for pain control. Keep legs elevated. Follow up with her primary care physician and your HAND MOLDER for recheck as soon as possible. Return to the emergency department immediately for any new, worsening, or concerning symptoms. Is patient prescribed a controlled substance at d/c from ED?: No Referrals: Brittany Cota MD [Primary Care Provider] - 1-2 days Time of Disposition: 00:21
--- NOTE | 2019-06-18 00:18 | US ---
EXAM: US Duplex Left Lower Extremity Veins CLINICAL HISTORY: ITS.REASON US Reason: Pain TECHNIQUE: Real-time duplex ultrasound scan of the left lower extremity veins integrating B-mode two-dimensional vascular structure, Doppler spectral analysis, color flow Doppler imaging and compression. COMPARISON: No relevant prior studies available. FINDINGS: Deep veins: Unremarkable. No DVT in the visualized common femoral, femoral, proximal deep femoral or popliteal veins. The veins demonstrate normal color flow, are normally compressible, with normal phasic flow and/or augmentation response. Superficial veins: Unremarkable. No thrombus in the visualized great saphenous vein. IMPRESSION: No DVT
[2019-06-18 00:35] VITALS: BP 146/94; PULSE 68; RESP 19; TEMP 98.2
== END 2019-06-18 00:32 | disposition home or self-care (01) ==
LOC: EC 21:24
DX: O99.89 Other specified diseases and conditions complicating pregnancy, childbirth and the puerperium (principal); M79.652 Pain in left thigh; Z3A.32 32 weeks gestation of pregnancy; Z91.018 Allergy to other foods; Z91.040 Latex allergy status; Z91.048 Other nonmedicinal substance allergy status; Z87.891 Personal history of nicotine dependence
CPT/HCPCS: 99283

== ENCOUNTER 2019-07-24 03:25 | Outpatient (CLI) | payer OTHER ==
[2019-07-24 05:21] VITALS: BP 130/81; PULSE 94; RESP 16; TEMP 97.7
--- NOTE | 2019-07-25 08:17 | P.MSEPDOC ---
Presenting Problems - Arrival Data Date of Arrival on Unit: 07/24/19 Time of Arrival on Unit: 03:25 Mode of Transport: Ambulatory - Complaint OB-Reason for Admission/Chief Complaint: Possible Onset of Labor Medical History - Information : 6 Para: 2 Term: 2 : 0 Abortions: Spontaneous or Elective: 3 Number of Living Children: 2 - Gestational Age Gestational Age by YOLY (wks/days): 37 Weeks and 2 Days Review of Systems - Review of Systems Constitutional: No problems Breast: No problems ENT: No problems Cardiovascular: No problems Respiratory: No problems Gastrointestinal: No problems Genitourinary: No problems Musculoskeletal: No problems Neurological: No problems Skin: No problems Vital Signs - Temperature Temperature: 97.7 F Temperature Source: Oral - Pulse Right Brachial Pulse Rate: 94 Pulse Assessment Method: Automatic Cuff - Respirations Respiratory Rate: 16 Oxygen Delivery Method: Room Air O2 Sat by Pulse Oximetry: 98 - Blood Pressure Right Arm Blood Pressure: 130/81 Blood Pressure Mean: 97 Medical Screen Scoring (Pre) - Cervical Exam Dilation: 1-3 cm = 1 Membranes: Intact - Uterine Contractions Frequency: > or = 36 weeks =2 - Maternal Vital Signs Maternal Temperature: N/A Maternal Blood Pressure: N/A Signs of Preeclampsia: N/A Maternal Respirations: N/A - Maternal Trauma Maternal Trauma: N/A - Assessment - Baby A Baseline FHR: 135 Heart Rate - NICHD Category: Category I (Normal) = 0 NST: Reactive Position: N/A Station: N/A - Total Score - Baby A Total Score - Baby A: 3 - Total Score - Baby B Total Score - Baby B: 3 - Total Score - Baby C Total Score - Baby C: 3 - Level of Risk - Baby A Level of Risk - Baby A: Low (0-5) - Level of Risk - Baby B Level of Risk - Baby B: Low (0-5) - Level of Risk - Baby C Level of Risk - Baby C: Low (0-5) Physician Notification (Pre) - Physician Notified Physician Notified Date: 07/24/19 Physician Notified Time: 04:58 Physician/Practitioner Notifed:: Dr. Fisher Spoke With: Dr. Fisher New Order Received: Yes - Notification Comment Comment: Dr. Fisher given report on pt in triage. Pt c/o. VS WNL. Reactive NST. Vag exam. of /-3 with no change after one hour. Orders recieved that pt may stay for. additional hour and be rechecked or may be discharged to home. To call if pt makes. change. Disposition - Disposition OB Disposition: Discharge to home Discharge Date: 07/24/19 Discharge Time: 05:14 I agree with the RN Medical Screening Exam: Yes Risk & Benefit of care provided described in d/c instruction: Yes Diagnosis: FALSE LABOR AT OR AFTER 37 COMPLETED WEEKS OF GESTATION
== END 2019-07-24 05:14 | disposition home or self-care (01) ==
LOC: FBPOP 03:25
PROVIDERS: ATTEND Obstetrics & Gynecology
DX: O47.1 False labor at or after 37 completed weeks of gestation (principal); Z3A.37 37 weeks gestation of pregnancy
CPT/HCPCS: 59025; G0463; 99213

== ENCOUNTER 2019-08-10 16:12 | Inpatient (IN) | payer OTHER ==
[2019-08-10] MEDS ORDERED: CARBOPROST TROMETHAMINE 250 MCG/ML 1 ML AMP IM PRN (17:13)
[2019-08-10] MEDS ORDERED: METHYLERGONOVINE 0.2 MG/ML 1 ML AMP IM PRN (17:13)
[2019-08-10] MEDS ORDERED: OXYTOCIN 10 UNIT/ML 1 ML VIAL IM PRN (17:13)
[2019-08-10] MEDS ORDERED: TERBUTALINE 1 MG/ML VIAL SQ PRN (17:13)
[2019-08-10] MEDS ORDERED: LIDOCAINE 0.5% (PF) 5 MG/ML (50 ML SDV) SQ PRN (17:13)
[2019-08-10 17:31] VITALS: BMI 41.5
[2019-08-10] MEDS: LACTATED RINGERS 1,000 ML IV SCH ×2 (17:37→18:26)
[2019-08-10 17:38] LABS: Basophils # (A) 0.1 k/uL (0-0.2); Basophils % (A) 1 %; Eosinophils # (A) 0.1 k/uL (0-0.7); Eosinophils % (A) 1 %; HCT 32.5 % (34.0-46.0); HGB 10.9 gm/dL (11.4-16.0); Lymphocytes # (A) 1.7 k/uL (1.0-4.8); Lymphocytes % (A) 14 %; MCHC 33.6 g/dL (31.0-37.0); MCV 86.4 fL (80.0-100.0); Mean Platelet Volume 7.6; Monocytes # (A) 0.5 k/uL (0-1.0); Monocytes % (A) 5 %; Neutrophils # (A) 9.3 k/uL (1.3-7.7); Neutrophils % (A) 79 %; Platelet Count 357 k/uL (150-450); RBC 3.76 m/uL (3.80-5.40); RDW 13.8 % (11.5-15.5); WBC 11.8 k/uL (3.8-10.6)
[2019-08-10] MEDS ORDERED: fentaNYL (PF) 50 MCG/ML 5 ML AMP ONE (18:09)
[2019-08-10] MEDS ORDERED: ROPIVACAINE 5MG/ML 20ML VIAL ONE (18:09)
[2019-08-10] MEDS ORDERED: SODIUM CHLORIDE 0.9% 100 ML BAG ONE (18:09)
[2019-08-10] MEDS ORDERED: diphenhydrAMINE 50 MG CAP PO PRN (20:12)
[2019-08-10] MEDS ORDERED: BENZOCAINE/MENTHOL SPRAY 1 GM/SPRAY AEROSOL TOPICAL PRN (20:12)
[2019-08-10] MEDS ORDERED: HYDROCORTISONE 2.5% RECTAL CREAM 30 GM TUBE RECTAL PRN (20:12)
[2019-08-10] MEDS ORDERED: diphenhydrAMINE 25 MG CAP PO PRN (20:12)
[2019-08-10] MEDS ORDERED: SIMETHICONE 80 MG CHEWABLE PO PRN (20:12)
[2019-08-10] MEDS ORDERED: LANOLIN CREAM 5 GM TUBE TOPICAL PRN (20:12)
[2019-08-10] MEDS ORDERED: diphenhydrAMINE 50 MG/ML 1 ML VIAL IVP PRN ×2 (20:12)
[2019-08-10] MEDS ORDERED: ACETAMINOPHEN TAB 325 MG TAB PO PRN (20:12)
[2019-08-10] MEDS ORDERED: WITCH HAZEL 1 EACH MED..PAD TOPICAL PRN (20:12)
[2019-08-10] MEDS ORDERED: ZOLPIDEM 5 MG TAB PO PRN (20:12)
[2019-08-10] MEDS ORDERED: OXYTOCIN 20 UNITS/1000 ML NS 1,000 ML IV SCH (20:15)
--- NOTE | 2019-08-10 20:15 | P.HPOB ---
History of Present Illness H&P Date: 08/10/19 Chief Complaint: Intrauterine at term Dayana is a 34-year-old at 39 weeks gestation arrives in active labor following spontaneous rupture membranes. Her course was, complicated by history of molar for which she did see M for preconceptual counseling as well as genetic screening during the . She had however no problems with the genetic screening and had no problems with the . On physical exam vital signs are stable and afebrile. Heart regular, lungs clear, extremities without pain. Abdomen soft gravid uterus is noted. Category 1 tracing is noted with a rate of 140s. She is dilated to 3 cm 80% effaced -2 station. Assessment intrauterine at term. Plan expect spontaneous vaginal delivery Past Medical History Past Medical History: GI Bleed Additional Past Medical History / Comment(s): HX VOMITING BLOOD IN PAST . MISSED AB CURRENTLY. NV R/T . History of Any Multi-Drug Resistant Organisms: None Reported Past Surgical History: Breast Surgery, Cholecystectomy Additional Past Surgical History / Comment(s): D & C 2011 w/ hemorrhage c omplications. FIBROADENOMA EXC RT BREAST. Past Anesthesia/Blood Transfusion Reactions: No Reported Reaction Past Psychological History: No Psychological Hx Reported Smoking Status: Never smoker Past Alcohol Use History: None Reported Additional Past Alcohol Use History / Comment(s): SMOKED 1 YR, QUIT 05/2018. Past Drug Use History: None Reported - Past Family History Mother Family Medical History: No Reported History Medications and Allergies Home Medications Medication Instructions Recorded Confirmed Type Hfv-Gbcg-Moyer Acid 1 cap PO DAILY 06/17/19 07/24/19 History [-U Capsule (formulary)] Allergies Allergy/AdvReac Type Severity Reaction Status Date / Time avocado Allergy Swelling Verified 08/10/19 16:18 banana Allergy Swelling Verified 08/10/19 16:18 kiwi Allergy Swelling Verified 08/10/19 16:18 latex Allergy Rash/Hives Verified 08/10/19 16:18 Latex, Natural Rubber Allergy Rash/Hives Verified 08/10/19 16:18 CHESTNUTS Allergy Unknown Uncoded 08/10/19 16:18 Exam Osteopathic Statement: *. No significant issues noted on an osteopathic structural exam other than those noted in the History and Physical/Consult. Intake and Output 08/10/19 08/10/19 08/10/19 06:59 14:59 22:59 Other: Weight 99.79 kg Results Result Diagrams: 08/10/19 16:50 Abnormal Lab Results - Last 24 Hours (Table) 08/10/19 Range/Units 16:50 WBC 11.8 H (3.8-10.6) k/uL RBC 3.76 L (3.80-5.40) m/uL Hgb 10.9 L (11.4-16.0) gm/dL Hct 32.5 L (34.0-46.0) % Neutrophils # 9.3 H (1.3-7.7) k/uL
--- NOTE | 2019-08-10 20:17 | P.PROBDLV ---
Vaginal Delivery Note - . Vaginal Delivery Note: Patient progressed complete and pushed with spontaneous vaginal delivery of a viable female over an intact perineum. Falling deliver the head from left occiput anterior position anterior posterior shoulders were easily delivered with gentle downward guidance. Once baby was fully delivered mouth nares were bulb suctioned and baby was placed on mother's abdomen where the umbilical cord was allowed to pulsate 40 seconds prior to clamping and cutting. Nursery personnel was present and assumed care. Placenta was then delivered intact Pitocin was added to the IV. scores were 8 and 9 at one and 5 minutes respectively and the weight is pending but both mother and baby appear stable following delivery.
[2019-08-10 20:28] VITALS: RESP 16
[2019-08-11] MEDS ORDERED: SENNOSIDES-DOCUSATE SODIUM 1 EACH TAB PO SCH (08:00)
[2019-08-11 09:01] VITALS: PULSE 82
[2019-08-11] MEDS: IBUPROFEN 600 MG TAB PO PRN ×2 (09:07→18:05)
--- NOTE | 2019-08-11 09:33 | P.DS ---
Providers Date of admission: 08/10/19 16:47 Expected date of discharge: 08/11/19 Attending physician: Jason Salazar Primary care physician: Jason Salazar [facility] Course: Dayana is doing very well day 1. She is involuting, voiding and tolerating her diet. She voices no complaints and is requesting discharge home today. She will be discharged home later this this evening once baby has been stable for 24 hours. Discharge instructions were thoroughly reviewed and all questions were answered for her prior to discharge. Prescription for Motrin was 4 into her pharmacy and she will follow up with me in 6 weeks. Otherwise on physical exam, heart was regular lungs clear, extremities without pain. Abdomen soft uterus is firm below the umbilicus and lochia is reported light. Assessment day 1. Plan discharged home follow up with me in 6 weeks Patient Condition at Discharge: Good Plan - Discharge Summary New Discharge Prescriptions: New Ibuprofen [Motrin] 600 mg PO Q6HR PRN #30 tab PRN Reason: Pain No Action Thb-Jcyt-Czzbr Acid [-U Capsule (formulary)] 1 cap PO DAILY Discharge Medication List Glf-Uevd-Zbcxn Acid [-U Capsule (formulary)] 1 cap PO DAILY 06/17/19 [History] Ibuprofen [Motrin] 600 mg PO Q6HR PRN #30 tab 08/11/19 [Rx] Follow up Appointment(s)/Referral(s): Jason Salazar DO [Primary Care Provider] - 6 Weeks Activity/Diet/Wound Care/Special Instructions: No heavy lifting, limit stairs and driving, and pelvic rest. If any high temperatures, heavy bleeding, or severe pain call my office Discharge Disposition: HOME SELF-CARE
[2019-08-11 16:42] VITALS: BP 138/72; TEMP 98
== END 2019-08-11 20:45 | disposition home or self-care (01) | DRG 807 ==
LOC: FBPOP 16:12 → 4FBP 16:47
PROVIDERS: ADMIT Obstetrics & Gynecology; ATTEND Obstetrics & Gynecology
PROC: 10E0XZZ Delivery of Products of Conception, External Approach (ICD-10-PCS; principal; 2019-08-10)
PROC: 00HU33Z Insertion of Infusion Device into Spinal Canal, Percutaneous Approach (ICD-10-PCS; 2019-08-10)
PROC: 3E0R3BZ Introduction of Anesthetic Agent into Spinal Canal, Percutaneous Approach (ICD-10-PCS; 2019-08-10)
DX: O80 Encounter for full-term uncomplicated delivery (principal); Z37.0 Single live birth; Z3A.39 39 weeks gestation of pregnancy; Z79.899 Other long term (current) drug therapy; Z90.49 Acquired absence of other specified parts of digestive tract; Z87.891 Personal history of nicotine dependence; Z98.890 Other specified postprocedural states; Z91.040 Latex allergy status; Z91.018 Allergy to other foods
CPT/HCPCS: 59025; 84112; 85025; 86850; 86900; 86901; 99213

== ENCOUNTER → 2021-10-15 | Outpatient (CLI) | payer OTHER ==
--- NOTE | 2021-10-16 09:06 | US ---
EXAMINATION TYPE: US thyroid st tissue head/neck DATE OF EXAM: 10/15/2021 COMPARISON: NONE CLINICAL HISTORY: E07.9 Disease of thyroid, unspecified. Pt states felling lump in throat, states she has a known nodule GLAND SIZE: Right Lobe: 5.7 x 1.6 x 2.2 cm Overall Parenchyma: homogenous Left Lobe: 5.1 x 1.3 x 1.8 cm Overall Parenchyma: homogeneous Isthmus Thickness: 0.3 cm NODULES LEFT: # of nodules measured on left: 1 1. 1.2 X 0.8 x 0.8 cm, lower, mixed cystic and solid, hypoechoic nodule, which is wider than tall, with smooth margins, without echogenic foci. Prior size: No prior here A couple of small sub-centimeter nodules lower pole= 0.4 cm in size Bilateral neck scanned, no evidence of lymphadenopathy. IMPRESSION: Mildly suspicious nodule left lobe thyroid. Consider follow-up exam 2017 ACR TI-RADS LEVEL: TR-RADS 3 - Mildly Suspicious: Follow if > 1.5 cm, FNA if > 2.5 cm *Highest TI-RADS level nodule reported
== END | disposition home or self-care (01) ==
LOC: RADUSWWP 16:41
PROVIDERS: ATTEND Internal Medicine
DX: E04.2 Nontoxic multinodular goiter (principal)
CPT/HCPCS: 76536

== ENCOUNTER 2024-05-04 11:48 | Day surgery (SDC) | payer OTHER ==
[2024-05-04 12:25] VITALS: RESP 18; TEMP 97.7
[2024-05-04] MEDS: LIDOCAINE 1% (10MG/ML) FOR IV START INTRADERMA PRN (12:25)
[2024-05-04] MEDS: IV FLUID CONTINUATION 1,000 ML IV ONE (12:25)
[2024-05-04] MEDS: LACTATED RINGERS 1,000 ML IV SCH (12:25)
[2024-05-04] MEDS ORDERED: LIDOCAINE 1% INJ 10MG/ML (20 ML MDV) ONE (12:33)
[2024-05-04] MEDS ORDERED: PROPOFOL 10 MG/ML 20 ML VIAL IV ONE (12:33)
--- NOTE | 2024-05-04 12:42 | P.PCN ---
Date of Procedure: 05/04/24 Procedure(s) Performed: BRIEF HISTORY: Patient is a 39-year-old, pleasant, white female scheduled for an upper endoscopy for evaluation of epigastric and abdominal bloating for the last 6 months duration.. PROCEDURE PERFORMED: Esophagogastroduodenoscopy with biopsy. PREOPERATIVE DIAGNOSIS: Epigastric pain and abdominal bloating of 6 months duration. IV sedation per anesthesia. PROCEDURE: After informed consent was obtained, the patient was brought into the endoscopy unit. IV sedation was administered by Anesthesia under continuous monitoring. Initially the Olympus GIF-140 video endoscope was inserted into the mouth. Esophagus intubated without any difficulty. It was gradually advanced into the stomach and duodenum and carefully examined. The bulb and the second part of the duodenum appeared normal. Biopsies were done from this area to evaluate for celiac disease. The scope at this time was withdrawn to the stomach, adequately insufflated with air, and upon careful examination, mucosa of the antrum, had patchy areas of erythema and linear areas of erythema consistent with gastritis and biopsies were done from this area. Mucosa of the body, cardia and the fundus appeared normal. The scope was then withdrawn into the esophagus. The GE junction was located at 39 cm from the incisors. The esophagus appeared normal. There were no erosions or ulcerations seen, biopsies were done from the distal esophagus and the patient tolerated the procedure well. IMPRESSION: 1. Mild linear areas of erythema in the antrum consistent with gastritis. 2. No evidence of esophagitis or peptic ulcer disease. RECOMMENDATIONS: The findings of this examination were discussed with the patient as well as her family. She was advised to follow-up with the biopsy results. Recommended a trial of Pepcid 20 mg twice daily for her ongoing symptoms. Follow-up in the office as needed.
[2024-05-04 13:09] VITALS: BP 114/69; PULSE 70
== END 2024-05-04 13:15 | disposition home or self-care (01) ==
LOC: ORWHC2ENDO 11:48
PROVIDERS: ATTEND Internal Medicine Gastroenterology
DX: K29.50 Unspecified chronic gastritis without bleeding (principal); Z91.040 Latex allergy status; Z90.49 Acquired absence of other specified parts of digestive tract
CPT/HCPCS: 81025; 88305; 43239; J2001; J2704